=== PATIENT | male | born 1970 | race Caucasian/White ===

== ENCOUNTER → 2019-12-30 08:35 | Outpatient (BNVA) | payer MEDICAID, SELFPAY | PROVIDERS: PCP Nurse Practitioner Family; Visit Provider Urology | DX: N50.819 Testicular pain, unspecified (principal); N45.1 Epididymitis; Z86.19 Personal history of other infectious and parasitic diseases; F17.210 Nicotine dependence, cigarettes, uncomplicated | CPT/HCPCS: 81001 ==

== ENCOUNTER 2020-01-07 20:24 | Emergency (ER) | payer MEDICAID, SELFPAY ==
[2020-01-07 20:32] VITALS: BP 105/63; PULSE 107; RESP 14; TEMP 36.6; O2SAT 99; BMI 18.1
--- NOTE | 2020-01-07 21:42 | CTR_ITS ---
PROCEDURE INFORMATION: Exam: CT Head Without Contrast Exam date and time: 01/07/2020 9:46 PM Age: 49 years old Clinical indication: Unspecified; Patient HX: C/O head pressure and speech disturbance; Additional info: Confusion TECHNIQUE: Imaging protocol: Computed tomography of the head without contrast. Radiation optimization: All CT scans at this facility use at least one of these dose optimization techniques: automated exposure control; mA and/or kV adjustment per patient size (includes targeted exams where dose is matched to clinical indication); or iterative reconstruction. COMPARISON: No relevant prior studies available. RADIATION DOSE METRICS: Total DLP (mGy-cm): 824.95 FINDINGS: Brain: Normal. No hemorrhage. Unremarkable white matter. No mass effect. 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 Ventricles: Normal. No ventriculomegaly. Bones/joints: Unremarkable. No acute fracture. Sinuses: Visualized sinuses are unremarkable. No fluid levels. Mastoid air cells: Visualized mastoid air cells are well aerated. Soft tissues: Unremarkable. CT/CT head wo con* [id number] IMPRESSION: 1. No acute intracranial abnormality. 2. 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 MRI may be helpful for further characterization. Radiation Dose CTDIVOL = (mGy): DLP = 824.95 (mGy-cm)
--- NOTE | 2020-01-07 21:43 | ED_ITS ---
HPI - Neuro Symptoms/Deficit General: Chief Complaint: Neuro Symptoms/Deficit Stated Complaint: having trouble talking/ thinks stroke Time Seen by Provider: 01/07/20 21:42 Source: patient Mode of arrival: ambulatory Limitations: no limitations History of Present Illness: HPI Narrative: Patient comes in today with episodes of what he recalls as inability to speak or say what is on his mind. Patient is very talkative and appears well. Patient does have a history of anxiety and depression and substance abuse. Patient does admit to smoking marijuana routinely. Patient also does admit to smoking methamphetamines. Patient right now is on antibiotics for epididymitis. Patient has no focal neural deficits. No facial palsy and is been able to ambulate without difficulty. Patient did report working outside in the heat several days ago and since then he has had more episodes of this transient aphasia. Review of Systems General: Reports: 10 or more systems reviewed and unremarkable except in HPI and below Neuro: Reports: dizziness and confusion [facility] ED PFSH: Medical History (Updated 01/07/20 @ 23:44 by KATHIA Flanagan) Anxiety Bilateral epididymitis Depression History of Clostridium difficile colitis Surgical History S/P appendectomy S/P tonsillectomy Social History Smoking and tobacco status: current every day smoker cigarettes Alcohol intake: unknown Lives independently: Yes Marital status: Single Current occupational status: disabled Physical Exam Const: COMMON NORMALS: no acute distress, patient oriented x3 and alert GENERAL APPEARANCE: cooperative HENMT: COMMON NORMALS: normocephalic and Normal external nose present HEAD & SCALP: normal to inspection and normocephalic NOSE: Normal external nose present MOUTH: Normal oral and palatal mucosa present Eye: GENERAL EYE: appearance normal, both eyes and all related structures Neck/C-Spine: COMMON NORMALS: full ROM and no meningeal signs Chest: COMMONS NORMALS: normal inspection of the chest Resp: COMMON NORMALS: normal respiratory effort EFFORT & INSPECTION: Yes able to speak in complete sentences Cardio: COMMON NORMALS: regular rate and regular rhythm RATE: regular rate RHYTHM: regular rhythm GI: COMMON NORMALS: non-tender : COMMON NORMALS: Yes no CVA tenderness BLADDER/KIDNEY EXAM: Yes no CVA tenderness Back/Pelvis: COMMON NORMALS: no CVA tenderness and thoracic and lumbar spine normal to inspection Extremity: COMMON NORMALS: normal to inspection Neuro: COMMON NORMALS: patient oriented x3 and moves all extremities SENSORIUM/ORIENTATION: Yes alert MENINGEAL SIGNS: Yes no meningeal signs COORDINATION/BALANCE: [id number] test normal SPEECH: speech normal GAIT: Yes Normal gait present COORDINATION: [id number] test normal Psych: COMMON NORMALS: mental status grossly normal and cooperative Skin: COMMON NORMALS: no rashes or lesions noted GENERAL SKIN EXAM: no rashes or lesions noted Course Vital Signs: Vital signs: Vital Signs Temperature 97.9 F 01/07/20 20:32 Pulse Rate 87 01/07/20 23:26 Respiratory Rate 18 01/07/20 23:26 Blood Pressure 121/79 01/07/20 23:26 Pulse Oximetry 100 01/07/20 23:26 MDM - Neuro Symptoms/Deficit MDM Narrative: Medical decision making narrative: Patient comes in today for complaints of difficulty forming sentences at times. Patient reports that there are times where he is unable to form a sentence and will stand there unable to answer the individual he is speaking to. Patient reports that the episodes have increased over the past 2 months. Patient appears well. Patient has no facial palsy. Patient has no other focal abnormalities. Pupils are equal and reactive. Patient is very verbose during his exam and speaks clearly without any difficulty. Patient does admit to the use of marijuana and methamphetamines. Differential diagnosis includes but not limited to substance abuse, seizure episode, TIA. Laboratory values noted a mild decrease in his sodium at 133 and creatinine at 1.3. CT scan noted a Manuel cisterna magna versus an arachnoid cyst. Recommended patient follow-up with neurology for further evaluation to rule out seizures and concerns related to the abnormality on the CT scan. Patient reported understanding of care plan and need for follow-up. I did discuss the abnormal CT scan with Dr. Morrissey and he agreed with the recommendations. Lab Data: Labs: Lab Results 01/07/20 01/07/20 Range/Units 22:05 22:05 WBC 7.1 (4.0-10.0) 10^3/ uL RBC 4.37 (4.1-5.3) 10^6/u L Hgb 14.0 (11.7-16.6) g/dL Hct 42.0 (42.0-52.0) % MCV 96.1 H (80-94) fL MCH 32.0 (28.0-34.0) pg MCHC 33.3 (30.0-36.0) g/dL RDW 13.1 (12.1-15.1) % Plt Count 280 (130-400) 10^3/c mm MPV 10.5 H (7.4-10.4) fL Neut % (Auto) 47.3 % Lymph % (Auto) 42.9 % Yancey % (Auto) 4.9 % Eos % (Auto) 4.0 % Baso % (Auto) 0.6 % Neut # (Auto) 3.35 (1.8-7.7) 10^3/u L Lymph # (Auto) 3.0 (0.8-4.8) 10^3/u L Yancey # (Auto) 0.4 (0.2-0.9) 10^3/u L Eos # (Auto) 0.3 (0.0-0.8) 10^3/u L Baso # (Auto) 0.0 (0.0-0.1) 10^3/u L Nucleated RBC % (a uto) 0 % Nucleated RBCs # 0.0 /100WBC Sodium 133 L (136-145) mmol/L Potassium 3.9 (3.5-5.1) mmol/L Chloride 97 L (98-107) mmol/L Carbon Dioxide 24 (22-29) mmol/L Anion Gap 15.9 (5-19) BUN 17 (6-20) mg/dL Creatinine 1.3 H (0.7-1.2) mg/dL GFR Calculation 58.9 L (90-130) mL/min Glucose 95 (65-115) mg/dL Calculated Osmolal ity 272 L (285-295) mOsm/k g Calcium 9.2 (8.5-10.5) mg/dL Total Bilirubin 0.2 (0.15-1.2) mg/dL AST 34 (0-40) U/L ALT 31 (0-41) U/L Alkaline Phosphata se 63 (40-130) IU/L Total Protein 7.4 (6.6-8.7) g/dL Albumin 4.7 (3.5-5.2) g/dL Globulin 2.7 (1.3-4.6) g/dL Ethyl Alcohol < 10 (0-10) mg/dL Discharge Plan Discharge Patient Disposition: Home Clinical Impression: Dysphasia, Manuel cisterna magna Condition: Stable Prescriptions: No Action clonazepam 0.5 mg tablet 0.25 mg PO BID RF: 0 sertraline 50 mg tablet 50 mg PO DAILY RF: 0 sulfamethoxazole-trimethoprim 800-160 mg tablet 1 tab PO BID Qty: 60 RF: 2 metronidazole 500 mg tablet 500 mg PO TID Qty: 30 RF: 0 Discharge Orders: Discharge Order (Routine); Ordered 01/07/20 Ordered By: Marty Plata Referrals: Laurence Montana APN [Primary Care Provider] - Discharge Diet: Usual diet Discharge Activity: Increase activity as tolerated Activity Restrictions/Additional Instructions: Home and rest. Healthy diet and exercise. Continue with routine medications as prescribed. Avoid the use of other medications or substances unless prescribed by provider. Follow-up with neurologist. Case management will contact you regarding follow-up appointment. Return to the emergency department for new concerns. Coding Level of Care Code ED [employer] for Carlos Fwrobert Exam Comprehensive
[2020-01-07 22:22] LABS: Basophils % 0.6 %; Eosinophils # 0.3 10^3/uL (0.0-0.8); Lymphocytes % 42.9 %; Mean Corpuscular HGB Conc 33.3 g/dL (30.0-36.0); Mean Corpuscular Volume 96.1 fL (80-94); Mean Platelet Volume 10.5 fL (7.4-10.4); Monocytes # 0.4 10^3/uL (0.2-0.9); Monocytes % 4.9 %; Neutrophils # 3.35 10^3/uL (1.8-7.7); Neutrophils % 47.3 %; Nucleated Red Blood Cells % 0 %; Platelet Count 280 10^3/cmm (130-400); Red Blood Count 4.37 10^6/uL (4.1-5.3); Red Cell Distribution Width 13.1 % (12.1-15.1); White Blood Count 7.1 10^3/uL (4.0-10.0)
[2020-01-07 22:26] VITALS: BP 101/60; PULSE 92; RESP 24; O2SAT 95
[2020-01-07 22:45] LABS: Alanine Aminotransferase 31 U/L (0-41); Albumin Level 4.7 g/dL (3.5-5.2); Alkaline Phosphatase 63 IU/L (40-130); Anion Gap 15.9 (5-19); Aspartate Amino Transferase 34 U/L (0-40); Blood Urea Nitrogen 17 mg/dL (6-20); Calcium 9.2 mg/dL (8.5-10.5); Carbon Dioxide 24 mmol/L (22-29); Chloride 97 mmol/L (98-107); Globulin 2.7 g/dL (1.3-4.6); Glomerular Filtration Rate 58.9 mL/min (90-130); Glucose 95 mg/dL (65-115); Osmolality Calculated 272 mOsm/kg (285-295); Potassium 3.9 mmol/L (3.5-5.1); Sodium 133 mmol/L (136-145); Total Bilirubin 0.2 mg/dL (0.15-1.2); Total Protein 7.4 g/dL (6.6-8.7)
[2020-01-07 22:51] LABS: Alcohol Level < 10 mg/dL (0-10)
[2020-01-07 23:26] VITALS: BP 121/79; PULSE 87; RESP 18; O2SAT 100
[2020-01-07 23:38] LABS: Add Urine Microscopic? NO
[2020-01-07 23:52] VITALS: BP 121/79; PULSE 87; RESP 18; O2SAT 100
[2020-01-07 23:55] LABS: Bilirubin Urine Neg (Negative); Blood Urine Neg (Negative); Glucose Urine UA Norm (Normal); Ketones Urine Negative (Negative); Leukocyte Esterase Urine Negative (Negative); Nitrate Urine Negative (Negative); Protein Urine Neg (Negative); Urine Appearance Clear (CLEAR); Urine Color Yellow (Yellow); Urobilinogen Urine 1 mg/dL (Negative); pH Urine 6 (5-7)
[2020-01-07 23:57] LABS: Amphetamines Screen Urine Positive (Negative); Barbiturates Screen Urine Negative (Negative); Benzodiazepines Screen Urine Positive (Negative); Cocaine Screen Urine Negative (Negative); Opiate Screen Urine Negative (Negative); PCP Screen Urine Negative (Negative); THC Screen Urine Positive (Negative)
--- NOTE | 2020-01-09 12:49 | DCPLANNER ---
manager bilingual had message to schedule a follow up appointment for patient with Dr. Alejo. manager bilingual called the office of Dr. Alejo, gave clinic patients information. manager bilingual was told that patients information would be given to Aleisha for review. Clinic will call patient with appointment information.
--- NOTE | 2020-01-10 11:37 | DCPLANNER ---
Patient has a follow up appointment scheduled for Friday, February 21, 2020 at 1:[address] Alejo. Clinic will call patient with appointment information.
--- NOTE | 2020-02-24 11:37 | DCPLANNER ---
Patient had a follow up appointment scheduled for 02.21.[address] Alejo - appointment was rescheduled.
== END 2020-01-07 23:52 | disposition home or self-care (01) ==
PROVIDERS: Emergency Provider Nurse Practitioner Family; PCP Nurse Practitioner Family
DX: R47.02 Dysphasia (principal); F17.210 Nicotine dependence, cigarettes, uncomplicated; R93.0 Abnormal findings on diagnostic imaging of skull and head, not elsewhere classified
CPT/HCPCS: 12345; 70450; 80053; 80306; 80307; 81003; 85025; 99283

== ENCOUNTER → 2020-01-19 15:17 | Outpatient (BNVA) | payer MEDICAID, SELFPAY | PROVIDERS: PCP Nurse Practitioner Family; Visit Provider Nurse Practitioner Family | DX: N45.1 Epididymitis (principal) | CPT/HCPCS: 81001 ==

== ENCOUNTER → 2020-02-07 14:55 | Outpatient (BNVA) | payer MEDICAID, SELFPAY | PROVIDERS: PCP Nurse Practitioner Family; Visit Provider Urology | DX: N45.1 Epididymitis (principal); N50.82 Scrotal pain; N50.9 Disorder of male genital organs, unspecified; F17.210 Nicotine dependence, cigarettes, uncomplicated | CPT/HCPCS: 81001 ==